=== PATIENT | female | born 1950 | race Caucasian/White ===

== ENCOUNTER 2020-03-27 09:53 | Outpatient (CLI) | payer MEDICARE, OTHER ==
--- NOTE | 2020-03-27 10:58 | CT ---
CT Lumbar Spine WO Con History: M [age] lumbar radiculopathy Comparison: None. Findings: Aortic contour is nonaneurysmal. No hydronephrosis. Nodule left adrenal gland measures greater than fluid attenuation not definitively benign. Recent left L4 hemilaminectomy change. Incomplete right L4 pars interarticularis defects. Dextroscoliosis lower lumbar spine of 22 degrees measured from the inferior endplate of L2 and L5. Ri ghtward subluxation of L3 over L4 4 mm and L4 over L5 5 mm. Evaluation of the nerve roots and cord is limited without intrathecal contrast. L1/L2: Mild disc bulge. No high-grade osseous neural foraminal or spinal canal narrowing. L2/L3: Mild disc space height loss. Mild hypertrophic facet arthrosis. Circumferential disc bulge. Mo derate left and mild right neural foraminal narrowing. Spinal canal measures approximately 9 mm. L3/L4: Moderate disc desiccation with height loss as well as vacuum disc phenomenon. Large disc osteo phyte complex. Spinal canal measures approximately 7 mm. Moderate to severe left and moderate right neural foraminal narrowing due to the asymmetric involvement of left lateral recess, subforaminal and extraforaminal zone of the disc osteophyte complex. L4/L5: Advanced degenerative disc space height loss with desiccation and vacuum disc phenomenon. 2 mm anterolisthesis. Large right facet osteophyte as well as the large disc bulge causes severe right neural foraminal narrowing. Moderate to severe right neural foraminal narrowing due to disc osteophyt e complex. Prior partial laminectomy. L5/S1: Moderate circumferential disc osteophyte complex asymmetric to the right lateral recess and velazquez bforaminal zone. Moderate to severe right and moderate left neural foraminal narrowing. Impression: Multilevel high-grade spondylosis as described.
== END 2020-03-27 09:54 | disposition home or self-care (01) ==
LOC: TBSIIMAG 09:53
PROVIDERS: ATTEND Neurological Surgery
DX: M47.26 Other spondylosis with radiculopathy, lumbar region (principal)
CPT/HCPCS: 72131

== ENCOUNTER 2024-08-16 14:27 | Emergency (ER) | payer MEDICARE, OTHER ==
[2024-08-16 14:52] LABS: Actual Bicarbonate (HCO3a) 30.6 mEq/L (22-28); Analyzer IN Cardio ER; Base Excess (BEa) 5.3 mEq/L (-2.0 to +3.0); CO2 Tension 48.8 mmHg (35.0-45.0); Carboxyhemoglobin (COHb) 1.1 gm% (0.0-3.0); Hematocrit-ABG 28 % (36.0-47.0); Hemoglobin (Hb) 9.6 g/dL (12.0-16.0); O2 Tension (PaO2), arterial 64.4 mmHg (> 70.0); Potassium - ABG Lab 4.37 mmol/L (3.70-5.30); pH, Arterial 7.415 (7.35-7.45)
[2024-08-16 14:57] LABS: Puncture Site Right Radial artery
[2024-08-16 15:42] LABS: #Basophils 0.03 10x3/uL (0.0-0.2); %Basophils 0.4 % (0.0-1.0); %Eosinophils 4.6 % (0.0-10.0); %Lymphocytes 16.8 % (21.0-51.0); %Monocytes 7.4 % (0.0-10.0); %Neutrophils 70.4 % (42.0-75.0); Hematocrit 29.1 % (36.0-47.0); Hemoglobin 9.2 g/dL (12.0-16.0); Mean Corpuscular HGB CONC 31.6 g/dL (32.0-36.0); Mean Corpuscular Hemoglobin 30.3 pg (27.0-31.0); Mean Corpuscular Volume 95.7 fL (78.0-98.0); Mean Platelet Volume 10.8 fL (7.4-10.4); Platelet Count 147 10x3/uL (130-400); RBC Distribution Width 14.4 % (11.5-14.5); Red Blood Cell (RBC) Count 3.04 mill/uL (4.20-5.40)
[2024-08-16 15:55] LABS: ALT (SGPT) 18 U/L (8-55); AST (SGOT) 24 U/L (5-34); Albumin 2.8 g/dL (3.4-4.8); Alkaline Phosphatase 60 U/L (40-110); Anion Gap 12 mmol/L (10-20); BUN (Urea Nitrogen) 30 mg/dL (9.8-20.1); Bilirubin, Total 0.3 mg/dL (0.2-1.2); Calc. Creatinine Clearance 0 mL/min (70-130); Calcium 9.1 mg/dL (7.8-10.44); Carbon Dioxide 31 mmol/L (23-31); Chloride 103 mmol/L (98-107); Estimated GFR 64; Globulin 3.3 g/dL (2.4-3.5); Glucose 141 mg/dL (83-110); Potassium 4.3 mmol/L (3.5-5.1); Protein, Total 6.1 g/dL (5.8-8.1); Sodium 142 mmol/L (136-145)
[2024-08-16 16:00] LABS: Troponin I Less than 0.010 ng/mL (< 0.028)
[2024-08-16 17:26] LABS: Actual Bicarbonate (HCO3v) 29.6 mEq/L (22-28); Analyzer IN Cardio ER; Base Excess 2.8 mEq/L (-2.0 to +3.0); Chloride (VBG) 101 mmol/L (98-106); Hematocrit-VBG 27 % (36.0-47.0); Hemoglobin (Hb) 9.1 g/dL (11.7-16.1); Potassium (VBG) 3.99 mmol/L (3.70-5.30); Sodium 142 mmol/L (133-146); pH (venous) 7.326 (7.32-7.43)
== END 2024-08-16 21:18 ==
LOC: ERS 14:27
DX: R06.89 Other abnormalities of breathing (principal); I25.10 Atherosclerotic heart disease of native coronary artery without angina pectoris; E11.9 Type 2 diabetes mellitus without complications; I10 Essential (primary) hypertension; Z86.73 Personal history of transient ischemic attack (TIA), and cerebral infarction without residual deficits; Z79.82 Long term (current) use of aspirin; Z79.84 Long term (current) use of oral hypoglycemic drugs; Z79.4 Long term (current) use of insulin; Z79.899 Other long term (current) drug therapy
CPT/HCPCS: 36600; 71275; 82805; 83880; 84484; 93005